=== PATIENT | female | born 1980 | race Caucasian/White ===

== ENCOUNTER 2022-05-02 11:52 | Emergency (ER) | payer OTHER, SELFPAY ==
[2022-05-02 11:59] VITALS: BP 148/99; PULSE 95; RESP 18; TEMP 36.9; O2SAT 99; BMI 23.9
--- NOTE | 2022-05-02 12:06 | ED.ANXIETY ---
HPI - Anxiety General Time Seen by Provider: 12:07 Date Seen: 05/02/22 Chief Complaint: Anxiety Stated Complaint: Anxiety causing high BP Time Seen by Provider: 05/02/22 11:53 Source: patient and RN notes reviewed Mode of arrival: ambulatory Limitations: no limitations History of Present Illness HPI narrative: Patient is a 41yo female presenting to the ED with concerns of anxiety elevating her blood pressure. This started after she had investigations/treatment in workup of infertility. The blood pressure was elevated about a week ago. Since then she has become anxious. She is the process of workup for infertility through a specialty clinic in [place]. She meets with the physician this coming Saturday in follow-up to review all the testing. She has had prior pregnancies. She admits at the end of her last , her blood pressure did elevate. She has not had to be on blood pressure medicines, has not carried a diagnosis of hypertension. She does admit she has anxiety. She is on Zoloft 50 mg daily and when she had her follow-up in February, was doing quite well. She feels the current infertility issues have triggered issues. She denies suicidality, homicidality. Does endorse panic attacks. She last year was given a prescription of 10 1 mg Ativan tablets and did not even fill it. Thus they did not plan on feeling it this year. She would not be going through any infertility interventions probably for at least 2 months. We did discuss that benzodiazepines are actually category X in . She is scheduled to see her primary care provider next week, that was the soon as she could get in. She would be interested in talking to our telehealth people to see if there were any other avenues or recommendations from them. She is on a waiting list to see a therapist/counselor. Has had a thyroidectomy but states she is monitored routinely for her thyroid levels, does not feel like these are off at all. Related Data Previous Rx's Medication Instructions Recorded hydroxyzine HCl 25 mg tablet 25 mg PO TID PRN #20 tabs 05/02/22 lorazepam 1 mg tablet (Ativan) 1 mg PO BID PRN #4 tabs 05/02/22 Allergies Allergy/AdvReac Type Severity Reaction Status Date / Time No Known Drug Allergies Allergy Verified 05/02/22 11:58 Review of Systems Status of ROS: Reports: 6 or more systems reviewed and unremarkable except as noted in History and below PFSH PFSH Social History Smoking Status: Never smoker Do you use any of these nicotine containing products: None Second hand tobacco smoke exposure: No How often do you have a drink containing alcohol: never How often do you have six or more drinks on one occasion: Less than monthly AUDIT-C Alcohol total score: 1 Non-prescribed substance use: denies use service: No Exam Const: Vital Signs, click to edit/add: Vital Signs - 24 hr 05/02/22 11:59 05/02/22 13:06 Temperature 98.4 F Pulse Rate [Pulse Oximeter] 95 Respiratory Rate 18 14 Blood Pressure [Ri ght Upper Arm] 148/99 H 147/92 H Pulse Oximetry 99 100 Oxygen Delivery Me thod Room Air Room Air Documenting provider has reviewed patient's vital signs: yes Common normals: no apparent distress, average body habitus, oriented x3, no limitations, healthy appearing, alert and well nourished General appearance: cooperative, comfortable, well kempt and well developed HENMT: Common normals: normocephalic, head/scalp atraumatic and hearing grossly normal bilaterally Head and scalp: normocephalic and atraumatic Eye: Common normals: PERRL, EOMs intact bilaterally, conjunctivae normal and no scleral icterus Conjunctiva: conjunctiva(e) normal Pupil: PERRL Neck & C-Spine: Common normals: no lymphadenopathy and supple Other: Scarring anteriorly along the neck which patient states is from a thyroidectomy. Resp: Common normals: normal respiratory effort, no retractions, no use of accessory muscles and clear to auscultation bilaterally Auscultation: clear to auscultation bilaterally Cardio: Common normals: regular rate, regular rhythm, S1 normal heart sound, S2 normal heart sound, no gallops, no clicks and no murmurs Rate: regular rate Rhythm: regular rhythm Heart sounds: S1 normal and S2 normal Extremity: Common normals: no pedal edema Neuro: Common normals: oriented x3 Sensorium/orientation: alert Psych: Common normals: mental status grossly normal, thought process normal, cooperative, affect normal, speech normal, activity/motor behavior normal, denies hallucinations, denies homicidal ideation and denies suicidal ideation Appearance: well kempt Attitude: calm Activity/motor behavior: appropriate eye contact Speech: normal speech Mood and affect: euthymic mood Thought process: normal thought process Thought content: normal thought content Attention/concentration: attention grossly intact Memory/cognition: memory grossly intact Insight: insight good Judgement: judgment good Course Reevaluation(s) Reevaluation #1: Reviewed with patient that unfortunately telehealth consultation will not happen until all probably around 4:00 p.mHarpreet Kathryn. She really does not feel like she wants to wait to talk to them and is comfortable with our plan of increasing her Zoloft to 100 mg daily, she will take 2 of her pills and talk to her primary care provider next week. I will send in a few tablets of Ativan but will have her 1st try hydroxyzine for acute anxiety or panic attacks. She will monitor her blood pressure when she is feeling calm, if remaining elevated may need treatment which should be done either by the [facility] or her primary care provider. Time: 12:51 Vital Signs Vital signs: Initial Vital Signs Temperature 98.4 F 05/02/22 11:59 Temperature Source Temporal Artery Scan 05/02/22 11:59 Pulse Rate 95 05/02/22 11:59 Pulse Rhythm 05/02/22 11:59 Respiratory Rate 18 05/02/22 11:59 Blood Pressure 148/99 H 05/02/22 11:59 Blood Pressure Mean 115 05/02/22 11:59 Blood Pressure Position Supine 05/02/22 11:59 Pulse Oximetry 99 05/02/22 11:59 Oxygen Delivery Method 05/02/22 11:59 Vital Signs Temperature 98.4 F 05/02/22 11:59 Pulse Rate 95 05/02/22 11:59 Respiratory Rate 18 05/02/22 11:59 Blood Pressure 148/99 H 05/02/22 11:59 Pulse Oximetry 99 05/02/22 11:59 Oxygen Delivery Method 05/02/22 11:59 Temperature 98.4 F 05/02/22 11:59 Pulse Rate 95 05/02/22 11:59 Respiratory Rate 14 05/02/22 13:06 Blood Pressure 147/92 H 05/02/22 13:06 Pulse Oximetry 100 05/02/22 13:06 Oxygen Delivery Method 05/02/22 13:06 Discharge Plan Discharge Clinical Impression: Acute anxiety Patient Disposition: Home, Self-Care Condition: Stable Instructions: Generalized Anxiety Disorder (ED), Anxiety (ED) Additional Instructions: Increase your Zoloft to 100 mg daily, take 2 of your 50 mg tablets. Talk to your primary care provider next week about this dose, get updated prescription if you are going to stay on this. Can use hydroxyzine per prescription for severe anxiety. If hydroxyzine is not working, have sent a few tablets of Ativan in for you. Ativan is a benzodiazepine, cannot be taken in and certainly has addictive potential. Do agree with your plan to see a therapist/counselor. If your mental health is worsening, certainly do recommend you seeking re-evaluation. You can periodically monitor your blood pressure in right these values down, if your blood pressure is overall escalating, treatment with antihypertensives may be warranted and would leave this to either the specialist for fertility or your primary care provider to address. Blood pressure here was borderline elevated, we do not recommend acute management of your blood pressure at this time. Ongoing monitoring is warranted before starting an antihypertensive. Activity Level: Activity as Tolerated Discharge Diet: Regular Prescriptions: New hydroxyzine HCl 25 mg tablet 25 mg PO TID PRNQty: 20 0RF lorazepam [Ativan] 1 mg tablet 1 mg PO BID PRNQty: 4 0RF Follow Up/Referrals: Provider,Not a Local [Primary Care Provider] - Stand Alone Forms: [employer] Info Instructions
[2022-05-02 13:06] VITALS: BP 147/92; RESP 14; O2SAT 100
== END 2022-05-02 13:24 | disposition home or self-care (01) ==
PROVIDERS: Emergency Provider Family Medicine
DX: F41.9 Anxiety disorder, unspecified (principal)
CPT/HCPCS: 99283